=== PATIENT | male | born 1985 | race American Indian/Alaskan Native ===

== ENCOUNTER 2021-11-15 02:01 | Emergency (ER) | payer OTHER ==
[2021-11-15 02:10] VITALS: BP 173/106
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
== END 2021-11-15 06:22 ==
LOC: ED 02:01
DX: S81.831A Puncture wound without foreign body, right lower leg, initial encounter (principal); Z53.21 Procedure and treatment not carried out due to patient leaving prior to being seen by health care provider; W34.09XA Accidental discharge from other specified firearms, initial encounter; Y93.89 Activity, other specified; Y92.89 Other specified places as the place of occurrence of the external cause; Y99.8 Other external cause status